=== PATIENT | male | born 1965 | race Caucasian/White ===

== ENCOUNTER 2016-06-08 06:11 | Day surgery (SDC) | payer OTHER ==
[~2016-06-08] VITALS: Ht 170.2 cm; Wt 86.2 kg
[2016-06-08 06:38] VITALS: BP 114/66
[2016-06-08 12:17] VITALS: BP 125/74
== END 2016-06-08 12:10 | disposition home or self-care (01) ==
LOC: DS 06:11 → OR 07:30 → DS 12:10
PROVIDERS: Surgery
PROC: 0FT44ZZ Resection of Gallbladder, Percutaneous Endoscopic Approach (ICD-10-PCS; principal; 2016-06-08 07:30)
DX: K80.10 Calculus of gallbladder with chronic cholecystitis without obstruction (principal); E11.65 Type 2 diabetes mellitus with hyperglycemia; G62.9 Polyneuropathy, unspecified; F17.210 Nicotine dependence, cigarettes, uncomplicated; Z68.30 Body mass index [BMI] 30.0-30.9, adult
CPT/HCPCS: 82962; J0330; J0690; J1170; J1815; J2250; J2405; J2704; J2710; J3010; J3490; J7030

== ENCOUNTER 2016-06-11 09:17 | Emergency (ER) | payer OTHER ==
[~2016-06-11] VITALS: Ht 170.2 cm; Wt 90.3 kg
[2016-06-11 13:20] VITALS: BP 126/84
== END 2016-06-11 13:20 | disposition home or self-care (01) ==
LOC: ED 09:17
DX: K59.00 Constipation, unspecified (principal); I10 Essential (primary) hypertension; E11.9 Type 2 diabetes mellitus without complications; E78.00 Pure hypercholesterolemia, unspecified; G89.29 Other chronic pain; M54.9 Dorsalgia, unspecified; Z90.49 Acquired absence of other specified parts of digestive tract

== ENCOUNTER 2017-10-23 02:15 | Emergency (ER) | payer SELFPAY ==
[~2017-10-23] VITALS: Ht 167.6 cm; Wt 74.8 kg
[2017-10-23 02:20] VITALS: Ht 167.6 cm; Wt 74.8 kg
[2017-10-23 02:53] LABS: CALCIUM 9.1 mg/dL (8.5-10.1); CARBON DIOXIDE 20.4 mmol/L (21-32); CHLORIDE SERUM 109 mmol/L (98-107); GFR1 > 60 mL/min; GLUCOSE SERUM 292 mg/dL (74-106); POTASSIUM SERUM 3.8 mmol/L (3.5-5.1); SODIUM SERUM 149 mmol/L (136-145)
[2017-10-23 02:58] LABS: ALBUMIN 3.7 g/dL (3.4-5.0); ALKALINE PHOSPHATASE 91 U/L (46-116); ALT/SGPT 64 U/L (16-63); AST/SGOT 47 U/L (15-37); BILIRUBIN TOTAL 0.17 mg/dL (0.20-1.00); TOTAL PROTEIN, SERUM 7.2 g/dL (6.4-8.2)
[2017-10-23 02:59] LABS: BASOPHIL % 0.6 % (0-2); PLATELET COUNT 241 x10^3mcL (130-400); RED CELL DISTRIBUTION WIDTH 13.2 % (11.5-14.5)
[2017-10-23 03:03] LABS: AMPHETAMINE QUAL UR NONE DETECTED (See below)
[2017-10-23 04:44] VITALS: BP 151/96
== END 2017-10-23 04:44 | disposition home or self-care (01) ==
LOC: ED 02:15
PROVIDERS: Emergency Medicine
DX: F10.129 Alcohol abuse with intoxication, unspecified (principal); Y90.0 Blood alcohol level of less than 20 mg/100 ml; I10 Essential (primary) hypertension; E11.9 Type 2 diabetes mellitus without complications
CPT/HCPCS: G0480; J3490; J7030

== ENCOUNTER 2017-10-25 13:28 | Emergency (ER) | payer MEDICAID ==
[~2017-10-25] VITALS: Ht 170.2 cm; Wt 80.7 kg
[2017-10-25 13:33] VITALS: Ht 170.2 cm; Wt 80.7 kg
[2017-10-25 15:46] LABS: BASOPHIL % 0.5 % (0-2); PLATELET COUNT 199 x10^3mcL (130-400); RED CELL DISTRIBUTION WIDTH 13.6 % (11.5-14.5)
[2017-10-25 15:58] LABS: CALCIUM 8.1 mg/dL (8.5-10.1); CARBON DIOXIDE 26.5 mmol/L (21-32); CHLORIDE SERUM 104 mmol/L (98-107); CREATININE SERUM 0.8 mg/dL (0.7-1.3); GFR1 > 60 mL/min; GLUCOSE SERUM 262 mg/dL (74-106); POTASSIUM SERUM 3.9 mmol/L (3.5-5.1); SODIUM SERUM 139 mmol/L (136-145)
[2017-10-25 16:04] LABS: ALKALINE PHOSPHATASE 94 U/L (46-116); ALT/SGPT 57 U/L (16-63); AST/SGOT 49 U/L (15-37); BILIRUBIN TOTAL 0.3 mg/dL (0.20-1.00); LIPASE 297 IU/L (73-393); TOTAL PROTEIN, SERUM 6.3 g/dL (6.4-8.2); TRIGLYCERIDES 163 mg/dL (<150)
[2017-10-25 16:21] LABS: ALBUMIN 3.1 g/dL (3.4-5.0); CHOLESTEROL 128 mg/dL (<200); HDL CHOLESTEROL 32 mg/dL (40-60)
[2017-10-25 16:22] LABS: T3 TOTAL 1.99 ng/mL
[2017-10-25 16:25] LABS: FREE T4 1.17 ng/dL (0.76-1.46); FREE THYROXINE INDEX 3.3 ug/dL (1.4-4.5); T4(THYROXINE) 11.7 ug/dL (4.7-13.3)
[2017-10-25 17:34] VITALS: BP 148/70
== END 2017-10-25 17:34 | disposition home or self-care (01) ==
LOC: ED 13:28
PROVIDERS: Specialist
DX: S22.31XA Fracture of one rib, right side, initial encounter for closed fracture (principal); I10 Essential (primary) hypertension; E11.9 Type 2 diabetes mellitus without complications; X58.XXXA Exposure to other specified factors, initial encounter; Y93.89 Activity, other specified; Y92.89 Other specified places as the place of occurrence of the external cause; Y99.8 Other external cause status
CPT/HCPCS: 83880; 84439; J1885; J2270; Q0162

== ENCOUNTER 2019-02-07 18:41 | Emergency (ER) | payer OTHER ==
[~2019-02-07] VITALS: Ht 170.2 cm; Wt 72.6 kg
[2019-02-07 18:48] VITALS: Ht 170.2 cm; Wt 72.6 kg
[2019-02-07 22:05] VITALS: BP 144/77
== END 2019-02-07 22:05 | disposition home or self-care (01) ==
LOC: ED 18:41
DX: S76.912A Strain of unspecified muscles, fascia and tendons at thigh level, left thigh, initial encounter (principal); I10 Essential (primary) hypertension; E11.9 Type 2 diabetes mellitus without complications; W18.30XA Fall on same level, unspecified, initial encounter; Y93.89 Activity, other specified; Y92.89 Other specified places as the place of occurrence of the external cause; Y99.8 Other external cause status

== ENCOUNTER 2019-12-09 16:57 | Emergency (ER) | payer OTHER ==
[~2019-12-09] VITALS: Ht 170.2 cm; Wt 74.8 kg
[2019-12-09 17:11] VITALS: Ht 170.2 cm; Wt 74.8 kg
[2019-12-09 19:02] VITALS: BP 128/70
== END 2019-12-09 19:02 | disposition home or self-care (01) ==
LOC: ED 16:57
DX: S46.912A Strain of unspecified muscle, fascia and tendon at shoulder and upper arm level, left arm, initial encounter (principal); M54.10 Radiculopathy, site unspecified; X58.XXXA Exposure to other specified factors, initial encounter; Y93.89 Activity, other specified; Y92.89 Other specified places as the place of occurrence of the external cause; Y99.8 Other external cause status
CPT/HCPCS: J1885; J3010; Q0092